=== PATIENT | female | born 1980 | race Caucasian/White ===

== ENCOUNTER → 2020-06-17 09:06 | Outpatient (BNVA) | payer BC, SELFPAY | PROVIDERS: PCP Internal Medicine; Referring Provider Internal Medicine; Visit Provider Student in an Organized Health Care Education/Training Program | DX: Z76.89 Persons encountering health services in other specified circumstances (principal) ==

== ENCOUNTER 2020-06-23 13:33 | Outpatient (REF) | payer BC, SELFPAY ==
--- NOTE | 2020-06-23 14:12 | XR_ITS ---
EXAMINATION: XR, HAND RIGHT XR, HAND LEFT CLINICAL INFORMATION: R76.8 - Other specified abnormal immunological findings in serum COMPARISON: None TECHNIQUE: Each hand is imaged in 3 views. There are a total of 6 views. FINDINGS: Right: There is no fracture, dislocation, or destructive process. Bony mineralization is normal. The ulnar variance is neutral. There is no carpal joint narrowing or erosive change or chondrocalcinosis. The MCP and interphalangeal joints are unremarkable. No focal soft tissue swelling. Left: There is no fracture, dislocation, or destructive process. Bony mineralization is normal. The ulnar variance is neutral. There is no carpal joint narrowing or erosive change or chondrocalcinosis. The MCP and interphalangeal joints are unremarkable. No focal soft tissue swelling. XR/XR hand RT min 3V IMPRESSION: Normal bilateral hands.
--- NOTE | 2020-06-23 14:12 | XR_ITS ---
EXAMINATION: XR, HAND RIGHT XR, HAND LEFT CLINICAL INFORMATION: R76.8 - Other specified abnormal immunological findings in serum COMPARISON: None TECHNIQUE: Each hand is imaged in 3 views. There are a total of 6 views. FINDINGS: Right: There is no fracture, dislocation, or destructive process. Bony mineralization is normal. The ulnar variance is neutral. There is no carpal joint narrowing or erosive change or chondrocalcinosis. The MCP and interphalangeal joints are unremarkable. No focal soft tissue swelling. Left: There is no fracture, dislocation, or destructive process. Bony mineralization is normal. The ulnar variance is neutral. There is no carpal joint narrowing or erosive change or chondrocalcinosis. The MCP and interphalangeal joints are unremarkable. No focal soft tissue swelling. XR/XR hand LT min 3V IMPRESSION: Normal bilateral hands.
[2020-06-23 14:56] LABS: Basophils Percent Auto 0.3 % (0-2); Eosinophils Absolute Auto 0.1 X10*3/uL (0.0-0.4); Eosinophils Percent Auto 1.9 % (0-4); Hematocrit 39.4 % (37-47); Hemoglobin 13.1 g/dl (12.0-16.0); Imm Gran Abs Auto 0.01 X10*3/uL (0.00-0.03); Imm Gran Pct Auto 0.3 % (0.0-0.4); Lymphocytes Absolute Auto 0.5 X10*3/uL (1.2-4.9); Lymphocytes Percent Auto 17.4 % (20-40); MANUAL DIFF FLAG SCAN; Mean Corpuscular HGB Conc 33.2 g/dl (31.0-35.0); Mean Corpuscular Hemoglobin 31.4 pg (27.0-33.0); Mean Corpuscular Volume 94.5 fL (80-98); Mean Platelet Volume 12.2 fL (9.4-12.3); Monocytes Absolute Auto 0.2 X10*3/uL (0.1-1.2); Monocytes Percent Auto 7.4 % (2-11); Neutrophils Absolute Auto 2.3 X10*3/uL (2.0-8.3); Neutrophils Percent Auto 72.7 % (45-73); Platelet Count 142 X10*3/uL (160-400); Red Blood Count 4.17 X10*6/uL (4.20-5.50); Red Cell Distribution Width 15.1 % (11.0-16.0); SCAN SMEAR FLAG 1; White Blood Count 3.1 X10*3/uL (4.8-10.8)
[2020-06-23 15:19] LABS: SLIDE REVIEW VERIFIED
[2020-06-23 15:28] LABS: Glucose Urine UA NEG (NEG); Leukocyte Esterase Urine NEG (NEG); Nitrite Urine NEG (NEG); Specific Gravity - Urine 1.025 (1.005-1.025); Urine Blood NEG (NEG); Urine Ketones NEG (NEG); Urine Protein NEG (NEG-TRACE)
[2020-06-23 15:29] LABS: Alanine Aminotransferase 21 U/L (0-31); Albumin Level 3.7 g/dL (3.5-5.0); Alkaline Phosphatase 78 U/L (39-117); Anion Gap 13 (12-20); Aspartate Amino Transferase 31 U/L (5-31); Bilirubin Total 0.3 mg/dL (0.0-1.0); Blood Urea Nitrogen 14 mg/dL (9-16); C Reactive Protein 0.23 mg/dL (< or = 0.50); Calcium 8.1 mg/dL (8.4-10.2); Carbon Dioxide 26 mmol/L (22-29); Chloride 106 mmol/L (96-108); Estimated Glomerular Filt Rate > 60; Glucose Random 77 mg/dL (60-115); Potassium 4.4 mmol/l (3.3-5.1); Sodium 141 mmol/L (135-145); Total Protein 6.4 g/dL (6.5-8.0)
[2020-06-23 15:32] LABS: Appearance Urine CLEAR; Color Urine YELLOW
[2020-06-23 15:36] LABS: Erythrocyte Sedimentation Rate 6 MM/HR (0-20)
[2020-06-23 15:38] LABS: Bacteria Urine 2+ /LPF; Squamous Epithelial Cell Urine 2+ /LPF
[2020-06-23 15:41] LABS: Rheumatoid Factor 41.7 IU/mL (<15.0)
[2020-06-24 04:12] LABS: HBS Num1 33.08 mIU/mL (0-7.99); HBc Num1 0.12 S/CO (0.00-0.79); Hepatitis B Core Antibody Nonreactive (Nonreactive); ~HepC Num1 0.12 S/CO (0.00-0.79); ~Hepatitis B Surface Antibody REACTIVE (Nonreactive); ~Hepatitis C Antibody Nonreactive (Nonreactive)
[2020-06-24 04:23] LABS: HBsAGNum1 0.23 S/CO (0.00-0.99); Hepatitis B Surface Antigen Negative (Negative); ~Hepatitis A Antibody IgM Nonreactive (Nonreactive)
[2020-06-24 11:07] LABS: Anti DNA DS Antibody 1 IU/mL; Antibody to SS-A Antigen <1.0 NEG AI (<1.0 NEG); Antibody to SS-B Antigen <1.0 NEG AI (<1.0 NEG); SM/Ribonucleoprotein Ab >8.0 POS AI (<1.0 NEG); Scleroderma 70 Antibody <1.0 NEG AI (<1.0 NEG); Smith Protein 3.3 POS AI (<1.0 NEG)
[2020-06-24 13:32] LABS: Complement C3 86 mg/dL (83-193)
[2020-06-24 15:07] LABS: Cyclic Citrullinated Peptide <16 UNITS
[2020-06-25 22:22] LABS: TS Negative Control Passed; TS Panel A 0; TS Panel B 0; TS Positive Control Passed; TSpotTB Negative (SeeBelow)
[2020-06-27 12:17] LABS: Vitamin D 25-OH, D2 <4 ng/mL; Vitamin D 25-OH, D3 26 ng/mL; Vitamin D 25-OH, Total 26 ng/mL (30-100)
== END 2020-06-23 13:34 | disposition home or self-care (01) ==
LOC: HO.LAB 13:33
PROVIDERS: PCP Internal Medicine; Visit Provider Student in an Organized Health Care Education/Training Program
DX: R76.8 Other specified abnormal immunological findings in serum (principal)
CPT/HCPCS: 36415; 73130; 80053; 81001; 82306; 83520; 85025; 85652; 86140; 86160; 86200; 86225; 86235; 86431; 86481; 86704; 86706; 86709; 86803; 87340

== ENCOUNTER → 2020-07-07 16:41 | Outpatient (BNVA) | payer BC, SELFPAY | PROVIDERS: PCP Internal Medicine; Visit Provider Student in an Organized Health Care Education/Training Program ==

== ENCOUNTER → 2020-08-05 13:06 | Outpatient (REF) | payer BC, SELFPAY ==
--- NOTE | 2020-08-05 13:10 | CA_ITS ---
Transthoracic Echocardiogram Patient (Last, First, Middle): Roshni Hill, Gender: Female Date of : 1980 Age: 39 Procedure Date: 08/05/2020 Procedure Type: Transthoracic Echocardiogram Location: OP Height: 162.56 cm Weight: 73.03 kg BSA: 1.78 m2 Heart Rate: bpm BP: 118 / 60 mmHg Order Administrator: Referring MD: Devora Ragsdale MD Agricultural Aircraft Pilot: Guille Michael MD Symptoms: M35.9 - Systemic involvement of connective tissue, unspecified Study Quality: Fair ECG Rhythm: Sinus Conclusions: - Normal study Findings Left Ventricle Normal left ventricular size, thickness, and systolic function. The visually estimated ejection fraction is between 60-65%. Diastolic function is normal for age. Right Ventricle Normal right ventricular cavity size and systolic function. Atria Both atria are normal in size. There is no evidence of interatrial shunt. Aortic Valve Normal aortic valve structure and function. There is no aortic valve stenosis. There is no aortic valve regurgitation. Mitral Valve Normal mitral valve structure and function. There is trace mitral valve regurgitation. There is no mitral valve stenosis. Pulmonic Valve The pulmonic valve is likely normal. Tricuspid Valve Normal tricuspid valve structure. There is trace tricuspid valve regurgitation. The right ventricular systolic pressure is normal. The right ventricular systolic pressure is 18 mmHg. Normal right atrial pressure. There is no evidence of pulmonary hypertension. Great Vessels All visible segments of the aorta are normal in size. The pulmonary artery was not well visualized. Venous The inferior vena cava is normal in size and collapses greater than 50% with inspiration. Pericardium/Pleural There is no evidence of pericardial effusion. Prior Study Comparison No prior study available for comparison. Measurements 2D Linear Measurements IVSd: 0.89 0.6-0.9/0.6-1.0 cm LVIDd: 4.80 3.9-5.3/4.2-5.9 cm LVIDd Index: 2.70 2.4-3.2/2.2-3.1 cm/m2 LVIDs: 2.89 2.0-3.6 cm LVPWd: 0.78 0.7-1.1 cm Ao Root: 2.70 2.1-3.5 cm LA Diam: 3.60 2.7-3.8/3.0-4.0 cm LAIDs Index: 2.02 1.5-2.3 cm/m2 LV Mass: 166.01 67-162/88-224 g LV Mass Index: 93.26 43-95/49-115 g/m2 LVOT Diam: 2.20 3.0+(-)1.3 cm Mitral Valve MV Pk E: 0.79 MV PK A: 0.71 MV Decel Time: 204.00 E/A: 1.10 E'Lateral: 16.50 E'Medial: 12.90 E/E' Med: 6.10 E/E' Lat: 4.80 PHT: 60.00 MVA PHT: 3.67 Decel Bradford: 3.87 Aortic Valve AoV Pk Anton: 1.23 AoV Mn Anton: 0.82 AoV VTI: 0.30 AoV Pk Grad: 6.00 Aov Mn Grad: 3.00 CASPER Cont.VTI: 2.95 LVOT LVOT Pk Anton: 1.03 LVOT Mn Anton: 0.68 LVOT VTI: 0.24 LVOT Pk Grad: 4.00 LVOT Mn Grad: 2.00 LVOT Diam: 2.20 LVOT Area: 3.80 Diastolic Function MV Pk E: 0.79 MV Pk A: 0.71 E/A: 1.10 E'Medial: 12.90 E/E' Med: 6.10 E' Laterial: 16.50 E/E' Lat: 4.80 Tricuspid Valve TR Pk Anton: 1.96 TR Pk Grad: 15.00 RA Press: 3.00 RVSP: 18.00 Great Vessels Aorta Ao Root-2D: 2.70 2.0-3.7 cm Ao Asc: 2.50 2.1-3.4 cm Pulmonary Valve PV Pk Anton: 0.92 Peak PV Grad: 3.00 Updated in Other Vendor System with Status of Final Guille Michael MD electronically signed on 08/05/2020 2:59:17 PM with status of Final
--- NOTE | 2020-08-05 13:49 | PFT_ITS ---
FLOWS: FEV1 of 106% of predicted at 3.26 L. FVC 121% of predicted at 4.52 L. FEV1 to FVC ratio of 0.72. No bronchodilator response except in small to medium airways. LUNG VOLUMES: Total lung capacity 123% of predicted at 6.23 L. Residual volume 125% of predicted at 1.93 L. Slow vital capacity 122% of predicted at 4.30 L. Expiratory reserve volume 81% of predicted at 1.01 L. Diffusion capacity is normal. IMPRESSION: No obstructive or restrictive ventilatory defect. No bronchodilator response except in small to medium airways. Increased total lung capacity suggests hyperinflation. Increased residual volume suggests air trapping. This test result can be observed in asthma. Clinical correlation is advised. MD BEKAH Wright/MODL / [id number]
== END ==
LOC: HO.CARD 13:06
PROVIDERS: Visit Provider Student in an Organized Health Care Education/Training Program
DX: M35.9 Systemic involvement of connective tissue, unspecified (principal); R06.00 Dyspnea, unspecified
CPT/HCPCS: 93306; 94060; 94727; 94729

== ENCOUNTER 2020-10-23 08:23 | Outpatient (REF) | payer BC, SELFPAY ==
[2020-10-23 09:28] LABS: Glucose Urine UA NEG (NEG); Leukocyte Esterase Urine NEG (NEG); Nitrite Urine NEG (NEG); PH 8.5 (5.0-8.0); Specific Gravity - Urine 1.025 (1.005-1.025); Urine Blood 3+ (NEG); Urine Ketones NEG (NEG); Urine Protein NEG (NEG-TRACE)
[2020-10-23 09:29] LABS: Appearance Urine CLOUDY; Color Urine PINK
[2020-10-23 09:34] LABS: RBC Urine TNTC /HPF (0); Squamous Epithelial Cell Urine 1+ /LPF; WBC Urine 0 /HPF (0-4)
[2020-10-23 09:38] LABS: Basophils Percent Auto 0.4 % (0-2); Eosinophils Absolute Auto 0.1 X10*3/uL (0.0-0.4); Eosinophils Percent Auto 3.2 % (0-4); Hematocrit 37.3 % (37-47); Hemoglobin 12.2 g/dl (12.0-16.0); Imm Gran Abs Auto 0.01 X10*3/uL (0.00-0.03); Imm Gran Pct Auto 0.4 % (0.0-0.4); Lymphocytes Absolute Auto 0.6 X10*3/uL (1.2-4.9); Lymphocytes Percent Auto 22.8 % (20-40); MANUAL DIFF FLAG SCAN; Mean Corpuscular HGB Conc 32.7 g/dl (31.0-35.0); Mean Corpuscular Hemoglobin 29.8 pg (27.0-33.0); Mean Corpuscular Volume 91.2 fL (80-98); Mean Platelet Volume 12.3 fL (9.4-12.3); Monocytes Absolute Auto 0.3 X10*3/uL (0.1-1.2); Monocytes Percent Auto 9.6 % (2-11); Neutrophils Absolute Auto 1.8 X10*3/uL (2.0-8.3); Neutrophils Percent Auto 63.6 % (45-73); Platelet Count 131 X10*3/uL (160-400); Red Blood Count 4.09 X10*6/uL (4.20-5.50); SCAN SMEAR FLAG 1; White Blood Count 2.8 X10*3/uL (4.8-10.8)
[2020-10-23 09:54] LABS: Total Protein Urine Random 11 mg/dL (<12)
[2020-10-23 10:01] LABS: SLIDE REVIEW VERIFIED
[2020-10-23 10:20] LABS: UPreg QC Valid YES; Urine Pregnancy NEGATIVE (NEGATIVE)
[2020-10-23 10:24] LABS: Alanine Aminotransferase 13 U/L (0-31); Albumin Level 3.6 g/dL (3.5-5.0); Alkaline Phosphatase 87 U/L (39-117); Anion Gap 9 (12-20); Aspartate Amino Transferase 20 U/L (5-31); Bilirubin Total 0.3 mg/dL (0.0-1.0); Blood Urea Nitrogen 12 mg/dL (9-16); C Reactive Protein 0.79 mg/dL (< or = 0.50); Calcium 8.8 mg/dL (8.4-10.2); Carbon Dioxide 30 mmol/L (22-29); Chloride 106 mmol/L (96-108); Estimated Glomerular Filt Rate > 60; Glucose Random 97 mg/dL (60-115); Potassium 4.3 mmol/L (3.3-5.1); Sodium 141 mmol/L (135-145)
[2020-10-23 10:32] LABS: Erythrocyte Sedimentation Rate 10 MM/HR (0-20)
[2020-10-24 12:22] LABS: Anti DNA DS Antibody 1 IU/mL
[2020-10-26 10:26] LABS: Complement C3 100 mg/dL (83-193)
== END 2020-10-23 08:24 | disposition home or self-care (01) ==
LOC: HO.LAB 08:23
PROVIDERS: PCP Internal Medicine; Visit Provider Student in an Organized Health Care Education/Training Program
DX: M35.9 Systemic involvement of connective tissue, unspecified (principal); L40.9 Psoriasis, unspecified; I73.00 Raynaud's syndrome without gangrene; Z79.899 Other long term (current) drug therapy
CPT/HCPCS: 36415; 80053; 81001; 81025; 84156; 85025; 85652; 86140; 86160; 86225

== ENCOUNTER → 2020-11-18 11:34 | Outpatient (BNVA) | payer BC, SELFPAY | PROVIDERS: PCP Internal Medicine; Visit Provider Student in an Organized Health Care Education/Training Program ==

== ENCOUNTER → 2024-02-22 13:56 | Outpatient (RCR) | payer BC, SELFPAY ==
--- NOTE | 2020-11-13 09:49 | P.CNHO_ITS ---
Subjective - Subjective Chief complaint: Consult for: . Patient: new to practice Consult date: 11/13/20 Requesting Physician: Melyssa. Primary Care Provider: Kodak Escobedo MD Medical Summary: DIAGNOSIS: 1. Leukopenia. 2. Thrombocytopenia. HPI - Consult Narrative Reason for consult: Consult for: . Narrative: Roshni Busby is a pleasant 40 year old lady, with a history of SLE. Notes from rheumatology: 41yoF referred by her PCP presents Follow-up of UCTD. Last seen in June 2020. Patient presented Dr. Ragsdale, due to swelling. Stated that she went on vacation in September and towards the end of the vacation, she began to experience significant swelling in her lower extremities. Stated that when she would lie down the swelling from her lower extremities which travelled upwards into her abdomen and then when she would stand up, the swelling would return back into her lower extremities. Her swelling has since improved but she did have an episode of knee swelling yesterday. She did show me pictures in the office of have significant the swelling was. She did not have swelling. She does report some worsening psoriasis on her scalp however. Initial history: KERRI 1:2560 speckled pattern. Pt was initially diagnosed with UCTD in 2004 after presenting with sudden onset joint pain approximatley 4 months after the of her son which was an emergency . Was treated with Prednisone and Plaquenil, states that Plaquenil became ineffective and she was switched to Imuran. Last use of medications was 3 months ago - Imuran and Plaquenil - because she ran out of medication. Last saw a Hydrometer Calibrator 5 years ago - Dr Baker. States that when her lupus flares, usually manifests as diffuse joint pain and swelling as well as extreme fatigue. Her flares respond well to prednisone. Has a history of Fibromyalgia, states that she can have skin that is very sensitive to touch. Feels very fatigued and drained . Alcohol can trigger flares of her FM. On Lyrica for her FM and thoracic outlet syndrome. Has psoriasis on her palms and scalp. + malar rash +Raynauds in fingers, toes and ears. Uses Nifedipine. No history of digital ulcers. + dyspnea on exertion - can walk approximately 2 blocks before dyspnea + dry eyes, dry mouth, vaginal dryness No history of oral or nasal ulcers, frequent fevers, history of miscarriage. No plans to have any further children. Patient's had a vasectomy. She has been noted to have leukopenia and thrombocytopenia. ROS: She feels rather fatigued. No fever nor chills. Appetite is poor. She has lost weight. She gets headaches, all the time. These are migraine in nature. She does get dizzy at times. She gets chest tightness. Sometimes she has pleurisy. Her lungs are affected. She does complain of abdominal pain. She has bad IBS symptoms. She gets nausea. She has diarrhea 3 to 4 times a week. She complains of a horrible smell in the urine. She gets frequent UTIs. Musculoskeletal: She feels stiffness in the morning. She keeps her meds next to her bed. She puts an alarm on and wakes up at 03:00 to take them so she can function in the morning. She has joint pains involving elbows knees shoulder back ankles and hips. Her hands lock up. Sometimes she can not open her wrists. She has generalized weakness. She does feel blah a lot. She has facial rash:'Malar rash . She has psoriasis especially in the hair. She has really bad Raynaud's phenomena. She takes nifedipine for that. It lasts throughout the summer every single day. Her hands change color to purple in white. Even her nose and ears get affected. PAST MEDICAL HISTORY: She was diagnosed with an autoimmune condition 17 years ago. She was under the care of Dr. Baker, in [place]. She was diagnosed with lupus plus fibromyalgia. She was initially treated with Plaquenil, initially. Subsequently she had a bad flare up. She was started on Imuran. She has been on prednisone for her flares. Subsequently she took herself off of everything for a while, except for the nifedipine for Raynaud's. She saw Dr. Ragsdale in April. She was diagnosed with mixed connective tissue disease. Family history: Mother has SLE. An aunt had breast cancer. Brother with skin cancer. Grandma had emphysema and dementia. No family history of RA. 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 She had to quit her job in 2018 because of her illness. She is . She has 2 children. 17-year-old son and 9-year-old daughter. She smokes 1/3 pack a day. She drinks on the weekend. Review of Systems - Constitutional Reports no additional constitutional complaints, Reports body aches, Reports lack of energy, Reports malaise, Reports weakness, Reports weight loss - Eyes Reports no additional eye complaints, Denies blurry vision - ENT Reports no additional ear, nose, mouth, and throat complaints - Cardiovascular Reports no additional cardiovascular complaints, Reports chest pain at rest - Respiratory Reports no additional respiratory complaints, Denies change in phlegm color - Gastrointestinal Reports no additional gastrointestinal complaints, Reports abdominal pain, Reports belching, Reports change in bowel habits, Reports diarrhea, Reports nausea - Genitourinary Reports no additional female genitourinary complaints, Denies abnormal vaginal bleeding - Musculoskeletal Reports no additional musculoskeletal complaints, Reports back pain, Reports joint pain, Reports joint swelling - Integumentary/Breasts Skin/Breast: Reports no additional skin complaints, Denies bleeding lesions - Neurologic Reports no additional neurologic complaints, Reports headache(s), Denies focal weakness, Reports weakness - Psychiatric Reports no additional psychiatric complaints - Endocrine Reports no additional endocrine complaints - Hematologic/Lymphatic Reports no additional hematologic/lymphatic complaints - Allergic/Immunologic Reports no additional allergic/immunologic complaints Oncology Screenings - ECOG Performance Status ECOG Performance Status: 0 PMFSH Medical History: Medical History (Last Updated 11/13/20 @ 09:58 by Snow Li) KERRI positive Hx of chronic endometritis Irritable bowel syndrome Raynaud's disease without gangrene Thoracic outlet syndrome Functional capacity: independent ambulation Patient : No Family History: Family History (Last Updated 11/13/20 @ 10:03 by Snow Li) Mother Diabetes Lupus Depression Father Thyroid condition Paternal Grandmother Stroke Lung cancer Paternal Aunt Breast cancer Maternal Uncle MDS (myelodysplastic syndrome) Brother Skin cancer Son Autism Paternal Grandfather Emphysema lung Maternal Grandmother Emphysema lung Dementia Surgical History: Surgical History (Last Updated 11/13/20 @ 09:58 by Snow Li) History of section Hx of ovarian cystectomy Social History: Social History (Last Updated 11/13/20 @ 10:04 by Snow Li) Alcohol History: Alcohol intake: current Alcohol History Details: Alcohol intake frequency: holiday/special occasion Alcohol type: wine Tobacco History: Patient Tobacco Use Status: Current everyday Tobacco Substance Use History: Use of substances other than those prescribed or required for medical reasons : No Substance Use Type: Marijuana Nutrition Assessment: Patient : No Home Medications and Allergies Home Medications Medication Instructions Recorded Confirmed Type cholecalciferol (vitamin D3) 25 25 mcg PO DAILY 06/17/20 11/13/20 History mcg (1,000 unit) capsule duloxetine 30 mg capsule,delayed 30 mg PO DAILY 06/17/20 11/13/20 History release ibuprofen 800 mg tablet 800 mg PO TID 06/17/20 11/13/20 History multivitamin with minerals 1 cap PO DAILY 06/17/20 11/13/20 History ascorbic acid-collagen [Collagen 1 cap PO DAILY 11/13/20 11/13/20 History Plus Vitamin C] echinacea 380 mg PO DAILY 11/13/20 11/13/20 History ferrous sulfate [iron] 325 mg PO DAILY 11/13/20 11/13/20 History Allergies Allergy/AdvReac Type Severity Reaction Status Date / Time sertraline [Zoloft] Allergy Intermediate Vomiting Verified 10/23/20 08:29 Physical Exam - Constitutional Present: no acute distress - Routine HEENT Exam Head: Present: normal inspection ENT: Present: mucous membranes moist - Routine Neck Exam Present: supple - Routine Respiratory Exam Present: CTAB - Routine Cardiovascular Exam Cardiovascular: Present: RRR, S1, S2 - Routine Abdominal Exam Present: soft, nontender - Routine Rectal Exam Patient deferred: digital exam - Routine Extremities Exam Present: nontender - Routine Skin Exam Present: intact - Routine Neurological Exam Present: alert, oriented X3 - Detailed Neurological Exam: Coma Scale Eye Opening: Spontaneous (4) Verbal Response: Oriented (5) Motor Response: Obeys commands (6) [place] Coma Scale Total: 15 - Routine Psychiatric Exam Present: anxious Hem/Onc Consult Result - Labs CBC & Chem 7: 11/13/20 10:27 11/13/20 10:27 Assessment and Plan (1) Chronic leukopenia Status: Acute This is a pleasant 40-year-old unfortunate lady, who was diagnosed with lupus more than 17 years ago. Diagnosis has been switched to mixed connective tissue disease. She is being treated for it by Rheumatology. She has been noted to have leukopenia and thrombocytopenia. DIFFERENTIAL DIAGNOSIS: 1. COLLAGEN VASCULAR DISORDER: Her low counts are most likely related to her underlying mixed connective tissue disease. This is autoimmune. 2. DRUG-INDUCED: Imuran can lead to pancytopenia. 3. A CHRONIC INFECTION: Could be HIV versus hepatitis. 4. B12/FOLATE DEFICIENCY: Possible but less likely. 5. MYELO INFILTRATIVE DISORDER: MDS VERSUS MULTIPLE MYELOMA VERSUS LYMPHOMA: Also less likely. PLAN: Will proceed with further evaluation. Check sed rate to assess disease activity: 10, CRP: 0.72. Check hepatitis profiles and HIV:Negative. Check B12 and folate levels. Check LDH: 148 and SIEP. At this point the plan is to keep an eye on her blood count. If the WBC count declines to less than 2, or platelet less than 50, will proceed with a bone marrow exam for further evaluation. She will return in 3 months for a follow-up visit. Thank you, CC: Dr. Ragsdale. Dr. Escobedo
[2020-11-13 09:50] VITALS: BP 125/88; PULSE 96; RESP 12; TEMP 36.8; BMI 27.3
[2020-11-13 10:36] LABS: Eos%MD 1.2 %; IG%MD 0.3 %; PLT CLUMP 1
[2020-11-13 10:38] LABS: Baso%MD 0.6 %; Hematocrit 39.2 % (37-47); Hemoglobin 13.2 g/dl (12.0-16.0); Lymph%MD 20.8 %; Mean Corpuscular HGB Conc 33.7 g/dl (31.0-35.0); Mean Corpuscular Hemoglobin 30.5 pg (27.0-33.0); Mean Corpuscular Volume 90.5 fL (80-98); Mono%MD 8.3 %; Neut%MD 68.8 %; Red Blood Count 4.33 X10*6/uL (4.20-5.50); Red Cell Distribution Width 13.9 % (11.0-16.0); White Blood Count 3.3 X10*3/uL (4.8-10.8)
[2020-11-13 11:01] LABS: Platelet Count 131 X10*3/uL (160-400)
[2020-11-13 11:20] LABS: Alanine Aminotransferase 18 U/L (0-31); Albumin Level 4.3 g/dL (3.5-5.0); Alkaline Phosphatase 99 U/L (39-117); Anion Gap 14 (12-20); Aspartate Amino Transferase 21 U/L (5-31); Bilirubin Total 0.5 mg/dL (0.0-1.0); Blood Urea Nitrogen 13 mg/dL (9-16); Calcium 9.3 mg/dL (8.4-10.2); Carbon Dioxide 23 mmol/L (22-29); Chloride 106 mmol/L (96-108); Estimated Glomerular Filt Rate > 60; Glucose Random 86 mg/dL (60-115); Lactate Dehydrogenase 148 U/L (122-220); Sodium 139 mmol/L (135-145); Total Protein 7.3 g/dL (6.5-8.0)
[2020-11-13 11:21] LABS: HBS Num1 37.48 mIU/mL (0-7.99); HBc Num1 0.07 S/CO (0.00-0.79); HIV AB/AG Nonreactive (Nonreactive); HIV Num 1 0.06 S/CO (0.00-0.99); Hepatitis B Core Antibody Nonreactive (Nonreactive); ~HepC Num1 0.11 S/CO (0.00-0.79); ~Hepatitis B Surface Antibody REACTIVE (Nonreactive); ~Hepatitis C Antibody Nonreactive (Nonreactive)
[2020-11-13 11:24] LABS: HBsAGNum1 0.23 S/CO (0.00-0.99); Hepatitis B Surface Antigen Negative (Negative)
[2020-11-13 11:48] LABS: Band Neutrophils Percent 3 % (3-5); Lymphocytes Absolute Manual 0.6 X10*3/uL (0.6-4.8); Lymphocytes Percent Manual 19 % (20-40); Monocytes Absolute Manual 0.1 X10*3/uL (0.0-1.2); Monocytes Percent Manual 4 % (2-11); Neutrophils Absolute Manual 2.5 X10*3/uL (2.2-7.9); Neutrophils Percent Manual 74 % (45-73)
[2020-11-13 11:51] LABS: Platelet Estimate SLIGHTLY DECREASED (NORMAL); Platelet Morphology Comment NORMAL; RBC Morphology NORMAL
[2020-11-17 11:56] LABS: IgA 147 mg/dL (47-310); IgG 1322 mg/dL (600-1640); IgM 146 mg/dL (50-300)
== END | disposition home or self-care (01) ==
LOC: HO.ONC 11-13 09:44
PROVIDERS: PCP Internal Medicine; Referring Provider Student in an Organized Health Care Education/Training Program; Visit Provider Internal Medicine Medical Oncology
DX: D72.819 Decreased white blood cell count, unspecified (principal); D69.6 Thrombocytopenia, unspecified; M32.9 Systemic lupus erythematosus, unspecified
CPT/HCPCS: 36415; 80053; 82784; 83615; 85007; 85027; 86334; 86704; 86706; 86803; 87340; 87389